=== PATIENT | male | born 2000 | race Caucasian/White ===

== ENCOUNTER 2019-03-14 22:53 | Emergency (ER) | payer BC, OTHER ==
[~2019-03-14] VITALS: Ht 177.8 cm; Wt 75.3 kg
[2019-03-14 22:55] VITALS: BP 137/84
== END 2019-03-15 01:00 | disposition left against medical advice (07) ==
LOC: M ED 22:53
DX: R05 Cough (principal); Z53.21 Procedure and treatment not carried out due to patient leaving prior to being seen by health care provider

== ENCOUNTER → 2020-04-17 | Outpatient (CLI) | payer SELFPAY | LOC: M LABSMTC 10:48 | PROVIDERS: ATTEND Pediatrics | DX: Z20.822 Contact with and (suspected) exposure to COVID-19 (principal) ==

== ENCOUNTER 2020-12-05 09:48 | Emergency (ER) | payer BC, OTHER ==
[~2020-12-05] VITALS: Ht 177.8 cm; Wt 82.3 kg
[2020-12-05] MEDS ORDERED: AMOX500C PO (12:46)
[2020-12-05 13:21] VITALS: BP 122/77
== END 2020-12-05 13:22 | disposition home or self-care (01) ==
LOC: M ED 09:48
DX: J02.0 Streptococcal pharyngitis (principal)

== ENCOUNTER → 2021-06-19 | Outpatient (REF) | payer BC, OTHER ==
[~2021-06-19] MED LIST: AMOX500C PO
== END ==
LOC: M LAB REF 12:50
PROVIDERS: ATTEND Nurse Practitioner Family
DX: J02.9 Acute pharyngitis, unspecified (principal)

== ENCOUNTER 2021-08-30 19:24 | Emergency (ER) | payer BC, OTHER ==
[~2021-08-30] VITALS: Ht 180.3 cm; Wt 79.5 kg
[2021-08-30] MEDS ORDERED: methylPREDNISolone 125MG 2ML VIAL IV ONE (21:50)
[2021-08-30 23:23] VITALS: BP 109/53
== END 2021-08-30 23:28 | disposition home or self-care (01) ==
LOC: M ED 19:24 → EDBD 19:24 → M ED 23:28
DX: R06.02 Shortness of breath (principal); T78.40XA Allergy, unspecified, initial encounter; J45.909 Unspecified asthma, uncomplicated
CPT/HCPCS: 71045; 93005; 93041; 94760; 96374; 99285; J2930

== ENCOUNTER → 2021-10-12 | Outpatient (REF) | payer OTHER | LOC: M SFHCDERM 16:17 | PROVIDERS: ATTEND Physician Assistant | DX: L72.9 Follicular cyst of the skin and subcutaneous tissue, unspecified (principal) ==

== ENCOUNTER → 2022-01-26 | Outpatient (REF) | payer OTHER, BC | LOC: M SFHCDERM 17:34 | PROVIDERS: ATTEND Physician Assistant | DX: L72.0 Epidermal cyst (principal); L90.5 Scar conditions and fibrosis of skin ==

== ENCOUNTER 2024-03-13 20:48 | Emergency (ER) | payer OTHER, BC ==
[~2024-03-13] VITALS: Ht 177.8 cm; Wt 81.8 kg
[2024-03-13 20:50] VITALS: TEMP 97.6
[2024-03-13 22:46] VITALS: BP 139/68; O2SAT 98
== END 2024-03-13 22:47 | disposition home or self-care (01) ==
LOC: M ED 20:48
DX: S06.0X0A Concussion without loss of consciousness, initial encounter (principal); Y04.0XXA Assault by unarmed brawl or fight, initial encounter; Y92.9 Unspecified place or not applicable; Y93.89 Activity, other specified; Y99.0 Civilian activity done for income or pay; Z91.018 Allergy to other foods; Z79.2 Long term (current) use of antibiotics

== ENCOUNTER → 2024-10-02 | Outpatient (REF) | payer OTHER, BC | LOC: M SFHCDERM 14:52 | PROVIDERS: ATTEND Physician Assistant | DX: D48.5 Neoplasm of uncertain behavior of skin (principal) ==